=== PATIENT | male | born 1995 | race African-American/Black ===

== ENCOUNTER 2023-05-21 09:00 | Emergency (ER) | payer OTHER ==
[~2023-05-21] VITALS: Ht 182.9 cm; Wt 96.0 kg
[2023-05-21 09:04] VITALS: TEMP 97.7; O2SAT 100
[2023-05-21 11:16] VITALS: BP 135/87; PULSE 89; RESP 16
== END 2023-05-21 11:16 | disposition home or self-care (01) ==
LOC: ER 09:00
DX: J02.9 Acute pharyngitis, unspecified (principal); R07.89 Other chest pain; Z00.00 Encounter for general adult medical examination without abnormal findings
CPT/HCPCS: 71045; 93005; 99283